=== PATIENT | female | born 2000 | race Caucasian/White ===

== ENCOUNTER 2018-07-05 22:43 | Inpatient (IN) | payer MEDICAID ==
[~2018-07-05] VITALS: Ht 170.2 cm; Wt 93.0 kg
[2018-07-05 23:17] VITALS: BP 132/60; PULSE 86; RESP 18; Ht 170.2 cm; Wt 93.0 kg
[2018-07-05] MEDS ORDERED: PNV91TAB6 PO (23:19)
[2018-07-06] MEDS ORDERED: LACTATED RINGER'S 1,000 ML IV SCH (00:05)
[2018-07-06] MEDS ORDERED: OXYTOCIN 30 UNITS/LR 500 ML IV PRN ×2 (00:30→10:30)
[2018-07-06] MEDS ORDERED: OXYCODONE/ACETAMINOPHEN (5/325) TAB PO PRN (00:30)
[2018-07-06] MEDS ORDERED: MISOPROSTOL 200 MCG TAB PR PRN ×2 (00:30→10:30)
[2018-07-06] MEDS ORDERED: LIDOCAINE 1% (MPF) 30 ML INJ INJ PRN (00:30)
[2018-07-06] MEDS ORDERED: CARBOPROST 250 MCG INJ IM PRN ×2 (00:30→10:30)
[2018-07-06] MEDS ORDERED: IBUPROFEN 600 MG TAB PO PRN (00:30)
[2018-07-06] MEDS ORDERED: METHYLERGONOVINE 0.2 MG INJ IM PRN ×2 (00:30→10:30)
[2018-07-06] MEDS ORDERED: OXYTOCIN 30 UNITS/LR 500 ML IV SCH ×4 (00:30→10:30)
[2018-07-06] MEDS ORDERED: BUTORPHANOL 2 MG INJ IV PRN (00:30)
--- NOTE | 2018-07-06 00:51 | TRIAGE ---
OB Triage Datetime Report Generated by CPN: 07/06/2018 00:51 Datetime: 07/05/2018 23:37 Labor Evaluation Frequency: 3-5 Monitor Mode: External Duration (sec)2399: 80-90 Quality: Moderate Pattern: Normal: <= 5 Contractions in 10 Minutes Resting Tone [place]: Relaxed Heart Rate FHR Baseline Rate: 130 Monitor Mode: External US Variability: Moderate 6-25 bpm Accelerations: 15X15 Decelerations: Early Category: Category I Pain Assessment Pain Scale: 3 Pain Presence: Intermittent Pain Type: Contraction Pain Location: Abdomen Datetime: 07/05/2018 23:25 Membranes Rupture Method: Spontaneous Nitrazine: Positive Datetime: 07/05/2018 23:23 Vaginal Exam Dilatation (cms): 1.5 Effacement (%): 80 Station: -2 Exam By: [email or web address] Datetime: 07/05/2018 23:15 Assessment Type: Triage EGA: 40.2 Maternal Assessment Level of Consciousness: Fully Conscious DTR's/Clonus: DTRs 2+ Headache: Denies Blurred Vision: No Respiratory Effort: Unlabored; Regular Rhythm; Equal Expansion Breath Sounds, Left: Clear and Equal Breath Sounds, Right: Clear and Equal Nausea/Vomiting: Denies RUQ Epigastric Pain: Denies Lower Extremities Edema: Bilateral Lower Extremities Degree: 2+ Upper Extremities Edema: None Degree: None Facial Edema: None Fall Risk Assessment History of Falling: (0) No Secondary Diagnosis: (0) No Ambulatory Aid: (0) Bedrest/Nurse Assist IV Therapy: (0) No Gait: (0) Normal/Bedrest/Immobile Mental Status: (0) Oriented to Own Ability Fall Score: 0 Fall Risk Score Definition: No Risk: No action required Datetime: 07/05/2018 23:14 Time of Arrival: 07/05/2018 22:37 Arrived By: Ambulatory Arrived From: Home Chief Complaint: States her water broke at 2200 Movement: Present Contractions: Irregular Rupture of Membranes: Ruptured Vaginal Bleeding: None Vaginal Discharge: Denies Recent Sexual Intercouse: Denies Abdominal Trauma: Not Applicable Patient Complaints: Contractions Time Provider Notified: 07/06/2018 23:07 Provider Notified: Luiza Initial Plan: ARTEMIO SALAS
[2018-07-06] MEDS ORDERED: FENTAnyl 2MCG/ML-ROPIV 0.2% 100 ML ONE (04:25)
[2018-07-06] MEDS ORDERED: LACTATED RINGER'S 1,000 ML IV PRN (04:29)
--- NOTE | 2018-07-06 04:34 | PREAC ---
Date/Time of Note Date/Time of Note DATE: 07/06/18 TIME: 04:32 Anesthesia Eval and Record Evaluation Time Pre-Procedure Interview DATE: 07/06/18 TIME: 04:32 Age 17 Sex female NPO: 8 hrs Preoperative diagnosis Labor Pain Planned procedure Labor Epidural Past Medical History Past Medical History: Includes : : (1), Para: (0), Gestational age: (40) Surgery & Anesthesia Issues No known issue Meds Anticoagulation: No Beta Marycruz within 24 hr: No Reason Beta Marycruz not given: Pt. not on B-Marycruz Reported Medications Pnv95/Ferrous Fumarate/FA ( Vitamin Tablet) 1 Each Tablet, 1 EACH PO, TAB 07/05/18 Current Medications Lactated Ringer's 1,000 ml @ 125 mls/hr Q8H IV Last administered on 07/06/18at 01:34; Admin Dose 125 MLS/HR; Start 07/06/18 at 00:05 Butorphanol Tartrate (Stadol) 2 mg Q2H PRN IV .PAIN; Start 07/06/18 at 00:30 Lidocaine (Xylocaine 1% (Mpf)) 30 ml ONCE PRN INJ .EPISIOTOMY; Start 07/06/18 at 00:30 Oxytocin/Lactated Ringer's 500 ml @ 500 mls/hr ONCE POST IV ; Start 07/06/18 at 00:30 Oxytocin/Lactated Ringer's 500 ml @ 125 mls/hr POST IV ; Start 07/06/18 at 00:30 Ibuprofen (Motrin) 600 mg ONCE PRN PO .PAIN 1-5; Start 07/06/18 at 00:30 Oxycodone/ Acetaminophen (Percocet (5/ 325)) 2 tab ONCE PRN PO .PAIN 6-10; Start 07/06/18 at 00:30 Oxytocin/Lactated Ringer's 500 ml @ 0 mls/hr ONCE PRN IV .VAGINAL BLEEDING; Start 07/06/18 at 00:30 Methylergonovine Maleate (Methergine) 0.2 mg ONCE PRN IM .VAGINAL BLEEDING; Start 07/06/18 at 00:30 Carboprost Tromethamine (Hemabate) 250 mcg ONCE PRN IM .VAGINAL BLEEDING; Start 07/06/18 at 00:30 Misoprostol (Cytotec) 1,000 mcg ONCE PRN MT .VAGINAL BLEEDING; Start 07/06/18 at 00:30 Oxytocin/Lactated Ringer's 500 ml @ 0 mls/hr FOR AUGMENTATION IV Last administered on 07/06/18at 01:55; Admin Dose 1 MLS/HR; Start 07/06/18 at 00:30 Meds reviewed: Yes Allergies Coded Allergies: No Known Allergy (Unverified , 07/05/18) Allergies Reviewed: Yes Labs/Studies Labs Reviewed: Reviewed by anesthesiologist Result Diagram: 07/06/18 0130 Laboratory Tests 07/06/18 01:30 Blood Bank Test 07/06/18 01:30 Antibody Screen NEGATIVE Blood Type A POSITIVE Rh Immune Globulin Candidate NO test: Positive Studies: ECG (n/a), CXR (n/a) Pre-procedure Exam Last vitals Vital Signs Date Temp Pulse Resp B/P (MAP) Pulse Ox O2 O2 Flow FiO2 Time Delivery Rate 07/05/18 98.5 86 18 132/60 Room Air 23:17 (84) Airway: Adequate mouth opening, Adequate thyromental dist Mallampati: Mallampati II Teeth: Normal Lung: Normal Heart: Normal ASA Physical Status ASA physical status: 2 Emergency: None Planned Anesthetic Neuraxial: Epidural Planned Pain Management Epidural Pre-operative Attestations Prior to commencing anesthesia and surgery, the patient was re-evaluated, there was verification of: *The patient's identity *The results of appropriate recent lab work and preoperative vital signs *The above evaluation not changing prior to induction *Anesthetic plan, risk benefits, alternative and complications discussed with patient/family; questions answered; patient/family understands, accepts and wishes to proceed. ITZEL SAHA MD Jul 06, 2018 04:34
--- NOTE | 2018-07-06 04:36 | PAC ---
Date/Time of Note Date/Time of Note DATE: 07/06/18 TIME: 04:36 Post-Anesthesia Notes Post-Anesthesia Note Last documented vital signs Vital Signs Date Temp Pulse Resp B/P (MAP) Pulse Ox O2 O2 Flow FiO2 Time Delivery Rate 07/06/18 98.5 86 18 132/60 99 Room Air 04:37 (84) Activity: WNL Respiratory function: WNL Cardiovascular function: WNL Mental status: Baseline Pain reasonably controlled: Yes Hydration appropriate: Yes Nausea/Vomiting absent: Yes ITZEL SAHA MD Jul 06, 2018 04:36
[2018-07-06] MEDS ORDERED: FENTAnyl 2MCG/ML-ROPIV 0.2% 100 ML BAG EPI SCH (05:00)
[2018-07-06] MEDS ORDERED: NALOXONE (0.4 MG/ML) INJ IV PRN (05:00)
[2018-07-06] MEDS ORDERED: SOD CHLORIDE 0.9% 1,000 ML IV SCH (06:15)
--- NOTE | 2018-07-06 09:08 | HP ---
Date/Time of Note Date/Time of Note DATE: 07/06/18 TIME: 09:07 OB - History Hx of Present Free Text/Dictation term with SROM : 1 Para: 0 Care: Good Care Ultrasounds: Normal mid trimester US Obstetrical Complications: None Medical Complications: None Past Family/Social History * Past Medical, Surgical, Family and Obstetric Histories reviewed from chart. OB Admission Exam Vital Signs Vital Signs Vital Signs Date Temp Pulse Resp B/P (MAP) Pulse Ox O2 O2 Flow FiO2 Time Delivery Rate 07/05/18 98.5 86 18 132/60 Room Air 23:17 (84) Physical Exam HEENT: WNL Heart: Rhythm Normal Lungs: Clear, Equal Abdomen: WNL Extremities: Normal Reflexes: Normal Cervical Dilatation: 10cm Effacement: 100% Station: +3 Membranes: Ruptured Amniotic Fluid: Clear Heart Rate: 130's Accelerations: Accelerations Present Decelerations: No Decelerations Varibility: Moderate Contractions on Admission: 6-10 Minutes Apart Intensity: Moderate Last 72 hours Lab Results CBC & BMP 07/06/18 01:30 OB Assessment/Plan Reason for admission: active labor, rupture of membranes Plan: Expectant Management RICA ASKEW MD Jul 06, 2018 09:08
--- NOTE | 2018-07-06 09:10 | LDN ---
Date/Time of Note Date/Time of Note DATE: 07/06/18 TIME: 09:09 Delivery Summary Weeks of Gestation 40 Placenta Delivered: Spontaneously Meconium: none Episiotomy: No Perineal laceration: 1 Anesthesia type: None Estimated blood loss: 300 Sponge & Needle done & correct: Yes All needle counts correct: Yes Any foreign bodies felt in the: No RICA ASKEW MD Jul 06, 2018 09:10
[2018-07-06] MEDS ORDERED: MAGNESIUM HYDROXIDE 30ML CUP PO PRN (10:30)
[2018-07-06] MEDS ORDERED: ACETAMINOPHEN 325 MG TAB PO PRN (10:30)
[2018-07-06] MEDS ORDERED: HYDROCODONE/APAP (5/325) TAB PO PRN (10:30)
[2018-07-06] MEDS ORDERED: ZOLPIDEM 5 MG TAB PO PRN (10:30)
[2018-07-06] MEDS ORDERED: LANOLIN HPA 1 PKT TOP PRN (10:30)
[2018-07-06] MEDS ORDERED: DIPHENHYDRAMINE 25 MG CAP PO PRN (10:30)
[2018-07-06] MEDS ORDERED: WITCH HAZEL/GLYCERIN PAD PR PRN (10:30)
[2018-07-06] MEDS ORDERED: BENZOCAINE 20% 56 ML SPRAY TOP PRN (10:30)
[2018-07-06] MEDS: LACTATED RINGER'S 1,000 ML IV* SCH ×2 (10:30→18:30)
--- NOTE | 2018-07-06 10:30 | NUR ---
ADMITTED PATIENT FROM L&D AT 1025 AM. ASSESSMENT DONE, VS TAKEN AND RECORDED. ROOM AND UNIT ORIENTATION GIVEN. INSTRUCTED PATIENT HOW TO USE ROOM PHONE AND CALL LIGHT, HOW TO CALL FOR ASSISTANCE WITH , WITH BATHROOM USE, AND NEEDED. EXPLAINED THE PURPOSE OF HOURLY ROUNDING. PATIENT VERBALIZED UNDERSTANDING.
[2018-07-06 10:35] VITALS: BP 122/71; PULSE 74; RESP 20
[2018-07-06 11:35] VITALS: BP 123/67; PULSE 87; RESP 19
[2018-07-06] MEDS: IBUPROFEN 800 MG TAB PO SCH ×3 (11:57→23:38)
[2018-07-06 16:00] VITALS: BP 121/62; PULSE 84; RESP 20
--- NOTE | 2018-07-06 17:30 | NUR ---
INITIALLY PATIENT WAS ADMITTED TO ROOM 310 B. AT 1730 PM PATIENT TRANSFERRED TO ROOM 323 AND STABLE.
--- NOTE | 2018-07-06 18:24 | NUR ---
EOSS: VS WNL. FUNDUS FIRM, MINIMAL LOCHIA, PATIENT VOIDED X 2. IV PITOCIN RUNNING AT 50 ML/HR. PAIN CONTROLLED WITH SCHEDULED MOTRIN. BONDING WELL WITH BABY. CBC TOMORROW MORNING.
[2018-07-06 20:15] VITALS: BP 121/69; PULSE 79; RESP 18
[2018-07-07] VITALS: BP 116/72; PULSE 89; RESP 18
[2018-07-07 04:10] VITALS: BP 113/55; PULSE 86; RESP 18
--- NOTE | 2018-07-07 05:20 | NUR ---
EOSS: Pt is in stable condition. No distress noted. Fundus firm with Small amount lochia noted. Up and voiding. Bonding well with baby.
[2018-07-07] MEDS: IBUPROFEN 800 MG TAB PO SCH ×5 (06:00→23:51)
[2018-07-07 08:05] VITALS: BP 115/58; PULSE 73; RESP 20
[2018-07-07] MEDS: SENNA/DOCUSATE NA (8.6MG/50MG) TAB PO PRN ×2 (08:42→20:57)
--- NOTE | 2018-07-07 08:57 | NUR ---
MOM 30 ML AND SENOKOT 1 TAB PRN GIVEN AT 0842 FOR CONSTIPATION. PATIENT TOLERATED WELL. MEDICATION SIDE EFFECTS AND INDICATION DISCUSSED. PATIENT VERBALIZED UNDERSTANDING.
--- NOTE | 2018-07-07 10:00 | NUR ---
TIM FROM PHARMACY NOTIFIED THAT PATIENT NEEDS FLU VACCINE. TIM SAID SHE WILL SEND IT.
[2018-07-07 15:55] VITALS: BP 122/56; PULSE 90; RESP 18
--- NOTE | 2018-07-07 18:40 | NUR ---
EOSS: VS WNL, FUNDUS FIRM, MINIMAL LOCHIA. PATIENT HAD BM, VOIDING WITHOUT DIFFICULTY. CBC DONE TODAY . FLU VACCINE GIVEN. BONDING WELL WITH BABY.
--- NOTE | 2018-07-07 18:59 | PN ---
Date/Time of Note Date/Time of Note DATE: 07/07/18 TIME: 18:56 OB Subjective Subjective Subjective PPD# 1 Patient is doing well. She denies nausea, vomiting, shortness of breath, chest pain, headache. She has been ambulating without difficulty, tolerating regular diet. Pain is well controlled on current medications OB Objective Objective Objective Vital Signs Date Temp Pulse Resp B/P (MAP) Pulse Ox O2 O2 Flow FiO2 Time Delivery Rate 07/07/18 98.4 90 18 122/56 Room Air 15:55 (78) 07/06/18 98 20:15 General: AAO X 3, comfortable, NAD, appropriate mood and affect. ABD: +BS. Soft, non-tender. Uterus 2 cm below umbilicus Flank: No CVA tenderness (B/L) LE: Mild edema. No clubbing, cyanosis, thigh or calf tenderness (B/L). Homans 'sign is negative OB Assessment/Plan Other plan: 17-year-old 1 para 1001 s/p normal vaginal delivery. PPD#1 - AF, VSS - Baby is doing well, at bed side. She is bonding well - Contraception methods with R/B/A/FR discussed - Continue care - H/H: 10.4/29.8 - Discharge home tomorrow - Rx and instruction given - Follow up in 2 and 6 weeks at clinic CIELO ZAVALA Jul 07, 2018 18:59
--- NOTE | 2018-07-07 19:00 | DS ---
Date/Time of Note Date/Time of Note DATE: 07/07/18 TIME: 18:59 Obstetrical Discharge Record Final Diagnosis Final Diagnosis: Term delivered Other Final Diagnosis 17-year-old 1 para 1001 s/p normal vaginal delivery. PPD#1. course was unremarkable. She is ambulating and tolerating regular diet. She is voiding without difficulty. Pain is controlled on current medication. - AF, VSS - Baby is doing well, at bed side. She is bonding well - Contraception methods with R/B/A/FR discussed - Continue care - H/H: 10.4/29.8 - Discharge home tomorrow - Rx and instruction given - Follow up in 2 and 6 weeks at clinic Vaginal Delivery Obstetrical Delivery: Spontaneous Condition on Discharge Physical Assessment Voiding: Yes Bowel Movement: Yes Breast: Soft, non-tender Fundus: Firm Calf Tenderness: No Patient Condition: Stable CIELO ZAVALA Jul 07, 2018 19:00
[2018-07-07 20:00] VITALS: BP 119/59; PULSE 79; RESP 16
[2018-07-08 04:00] VITALS: BP 118/67; PULSE 74; RESP 19
--- NOTE | 2018-07-08 05:28 | NUR ---
EOSS: PATIENT IN STABLE CONDITION. AMBULATING WELL AND VOIDING WELL. BONDING WELL WITH INFANT. WELL WITH NIPPLE SHIELD. FUNDUS FIRM AT UMBILICUS WITH SMALL AMOUNT OF LOCHIA. PATIENT IS AFEBRILE. FOB AT BEDSIDE.
[2018-07-08] MEDS: IBUPROFEN 800 MG TAB PO SCH ×2 (06:18→12:00)
[2018-07-08 08:00] VITALS: BP 110/66; PULSE 86; RESP 18
[2018-07-08] MEDS ORDERED: DIPHTH/TET/ACEL PERTUSS (ADULT) 0.5 ML VIAL IM* ONE (09:00)
[2018-07-08] MEDS ORDERED: MEASLES,MUMPS,RUBELLA VACCINE INJ SC* ONE (09:00)
[2018-07-08] MEDS ORDERED: VARICELLA VACCINE LIVE/PF 1,350 UNIT/0.5 ML ML SC* ONE (09:00)
--- NOTE | 2018-07-08 15:20 | NUR ---
Discharge instructions given to patient,home care instructions and care instructions given.Patient called Dr [facility] for her follow up check up and they gave her an appointment for 08/01/18 at 0900 am.all her questions were answered and she verbalizes understanding.
--- NOTE | 2018-07-08 16:00 | NUR ---
Went home with baby in stable condition accompanied by volunteer via wheelchair.
== END 2018-07-08 16:00 | disposition home or self-care (01) | DRG 807 ==
LOC: OBT 22:43 → L-D 22:44 → OBT 23:46 → L-D 07-06 04:04 → PP1 07-06 10:18
PROVIDERS: ADMIT Obstetrics & Gynecology; ATTEND Obstetrics & Gynecology
PROC: 10E0XZZ Delivery of Products of Conception, External Approach (ICD-10-PCS; principal; 2018-07-06)
DX: O70.9 Perineal laceration during delivery, unspecified (principal); Z37.0 Single live birth; Z3A.40 40 weeks gestation of pregnancy; Z23 Encounter for immunization
CPT/HCPCS: 62319; 85025; 85610; 85730; 86592; 86850; 86900; 86901; 87340; 90686; 90715; 90716; G0463; J0595; J2590; J3010; J7030; J7120